=== PATIENT | male | born 1990 | race Hispanic/Latino ===

== ENCOUNTER 2024-04-06 08:09 | Outpatient (CLI) | payer OTHER | END 2024-04-06 08:10 | disposition home or self-care (01) | LOC: CSHMRI 08:09 | PROVIDERS: ATTEND Nurse Practitioner Family | DX: S93.491A Sprain of other ligament of right ankle, initial encounter (principal); S99.911S Unspecified injury of right ankle, sequela; S82.51XA Displaced fracture of medial malleolus of right tibia, initial encounter for closed fracture; S93.431A Sprain of tibiofibular ligament of right ankle, initial encounter; M65.871 Other synovitis and tenosynovitis, right ankle and foot ==